=== PATIENT | male | born 1960 | race African-American/Black ===

== ENCOUNTER 2016-09-29 11:08 | Emergency (ER) | payer OTHER ==
[~2016-09-29] VITALS: Ht 177.8 cm; Wt 100.0 kg
[~2016-09-29 11:08] MED LIST: HTN MEDICATION PO
[2016-09-29 12:13] LABS: BASOPHILS % (AUTO) 0.3 % (0.0-2.0); EOSINOPHILS % (AUTO) 0.5 % (1.0-6.0); HEMATOCRIT 41.2 % (41-53); HEMOGLOBIN 13.3 g/dL (13.5-17.5); LYMPHOCYTES # (AUTO) 1.2 K/uL (1.0-4.8); MEAN CORPUSCULAR HGB CONC 32.3 G/dL (31.0-37.0); MEAN CORPUSCULAR VOLUME 87 fL (80-100); MONOCYTES # (AUTO) 0.4 K/uL (0.1-1.0); MONOCYTES % (AUTO) 9.5 % (2.0-9.0); NEUTROPHILS # (AUTO) 2.2 K/uL (1.8-7.7); NEUTROPHILS % (AUTO) 58.7 % (40.0-70.0); PLATELET COUNT (AUTO) 250 K/uL (150-450); RED BLOOD CELL COUNT(AUTO) 4.75 MIL/uL (4.50-5.90); RED CELL DISTRIBUTION WIDTH 13.9 % (11.5-14.5); WHITE BLOOD COUNT (AUTO) 3.7 K/uL (4.5-11.0)
[2016-09-29 12:33] LABS: RBC MORPHOLOGY COMMENT NORMAL RBC MORPH
[2016-09-29] MEDS ORDERED: FLUMAZENIL 0.1 MG/ML 5 ML VIAL IVP ONE ×2 (12:45→13:45)
[2016-09-29 14:51] VITALS: BP 155/83
== END 2016-09-29 14:56 | disposition home or self-care (01) ==
LOC: EDUNIT# 11:08 → EMS 11:14
DX: Z02.89 Encounter for other administrative examinations (principal); R41.82 Altered mental status, unspecified
CPT/HCPCS: 36415; 70450; 80307; 85025; 96374; 96376; 99285; J3490